=== PATIENT | male | born 1965 | race Hispanic/Latino ===

== ENCOUNTER 2022-08-09 14:44 | Emergency (ER) | payer OTHER ==
[2022-08-09] MEDS ORDERED: HYDROCODONE/APAP 10/325 TAB ONE (16:01)
--- NOTE | 2022-08-09 16:55 | RAD REPORT ---
EXAM DESCRIPTION: RAD - Tib Fib Left - 08/09/2022 4:13 pm CLINICAL HISTORY: Blunt force trauma COMPARISON: None. FINDINGS: Oblique fracture is present in the distal shaft of the fibula. No significant distraction or angulation deformity. The tibia and the remainder the fibula without acute finding. Knee and ankle joints without acute findings. No foreign body or other soft tissue abnormality. IMPRESSION: Distal left fibula fracture without significant distraction or angulation.
--- NOTE | 2022-08-09 16:56 | RAD REPORT ---
EXAM DESCRIPTION: RAD - Foot Left 3 View - 08/09/2022 4:13 pm CLINICAL HISTORY: PAIN COMPARISON: No comparisons FINDINGS: No fracture, dislocation or periosteal reaction. No acute or destructive bony process. No air or foreign body in the soft tissues. Distal fibular fracture is separately reported. IMPRESSION: Negative left foot examination.
--- NOTE | 2022-08-09 17:48 | ER ---
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 Pt c/o left lower leg pain and right elbow pain. Coronavirus screen: At this time, the client does not indicate any symptoms associated with coronavirus-19. Ebola Screen: Patient denies travel to an Ebola-affected area in the 21 days before illness onset. Initial Sepsis Screen: Does the patient meet any 2 criteria? No. Patient's initial sepsis screen is negative. Does the patient have a suspected source of infection? No. Patient's initial sepsis screen is negative. Risk Assessment: Do you want to hurt yourself or someone else? Patient reports no desire to harm self or others. Onset of symptoms was August 09, 2022. 15:21 Method Of Arrival: Wheelchair aa5 15:21 Acuity: CATIA 4 aa5 Historical: - Allergies: 15:22 Iodine IV; aa5 - PMHx: 15:22 Diabetes - NIDDM; Hypertension; aa5 15:23 Sleep apnea; Asthma; aa5 - PSHx: 15:22 None; aa5 - Immunization history:: Adult Immunizations unknown. - Social history:: Smoking status: Patient denies any tobacco usage or history of. Vital Signs: 15:21 BP 127 / 81; Pulse 91; Resp 16 S; Temp 98.2(TE); Pulse Ox 98% on R/A; Weight 86.18 kg aa5 (R); ED Course: 14:45 Patient arrived in ED. am2 14:57 Sahil Turpin PA is PHCP. cp 14:57 Sahil Cruz MD is Attending Physician. cp 15:21 Arm band placed on. aa5 15:22 Triage completed. aa5 16:15 XRAY Tib Fib LEFT In Process Unspecified. EDMS 16:15 XRAY Foot LEFT 3 View In Process Unspecified. EDMS 17:45 Peter Chopra MD is Referral Physician. cp 18:17 Araseli Stephenson, RN is Primary Nurse. iw Administered Medications: 15:51 Drug: HYDROcodone-acetaminophen 10 mg-325 mg 1 tabs Route: PO; bm7 Outcome: 17:47 Discharge ordered by . cp 18:18 Patient left the ED. iw Signatures: Dispatcher [employer] EDAraseli Escamilla, RN RN iw Janene Guerin RN RN aa5 Sahil Turpin, PA PA Sarina Arzate am2 Jovana Reno RN RN bm7 Corrections: (The following items were deleted from the chart) 15:23 15:22 PMHx: Dementia; aa5 aa5 15:23 15:22 Social history: Smoking status: Patient denies any tobacco usage or history of. aa5 aa5
--- NOTE | 2022-08-09 17:48 | EDPHYS ---
Physician Documentation [facility] Name: Raphael Berman Age: 57 yrs Sex: Male : 1965 Arrival Date: 08/09/2022 Time: 14:45 Bed Treatment Private MD: ED Physician Sahil Cruz HPI: 08/09 15:45 This 57 yrs old Male presents to ER via Wheelchair with complaints of Ankle cp Injury, Leg Pain. 15:45 Trauma demographics: County: The injury occurred in [place] Location of Injury: The cp injury occurred outdoors, Date: August 09, 2022. Mechanism of injury: Crush injury: from riding lawnmower, not require extrication, and the patient was not trapped for any length of time. Associated injuries: The patient sustained left foot and left ankle and left lower leg, painful injury. Onset: The symptoms/episode began/occurred just prior to arrival. 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 Lawn cp mower rolled on top of him but he was able to lift it off himself. Patient c/o pain to left lower leg, left ankle and left foot. Small laceration noted to right wrist, right elbow discomfort and mild stiffness of neck. Historical: - Allergies: 15:22 Iodine IV; aa5 - PMHx: 15:22 Diabetes - NIDDM; Hypertension; aa5 15:23 Sleep apnea; Asthma; aa5 - PSHx: 15:22 None; aa5 - Immunization history:: Adult Immunizations unknown. - Social history:: Smoking status: Patient denies any tobacco usage or history of. ROS: 15:50 Constitutional: Negative for body aches, chills, fever, poor PO intake. cp 15:50 Eyes: Negative for injury, pain, redness, and discharge. cp 15:50 Neck: Positive for stiffness, Negative for bony tenderness. 15:50 Cardiovascular: Negative for chest pain, palpitations. 15:50 Respiratory: Negative for cough, shortness of breath, wheezing. 15:50 Abdomen/GI: Negative for abdominal pain, nausea, vomiting, and diarrhea. 15:50 Back: Negative for pain at rest, pain with movement. 15:50 MS/extremity: Positive for pain, of the left foot and left ankle and left lower leg, Negative for paresthesias. 15:50 Skin: Positive for laceration(s), of the volar side of right wrist. 15:50 Neuro: Negative for altered mental status, headache, numbness, weakness. 15:50 All other systems are negative. Exam: 15:50 Constitutional: The patient appears in no acute distress, alert, awake, cp non-diaphoretic, non-toxic, well developed, well nourished, uncomfortable. 15:50 Head/Face: Normocephalic, atraumatic. cp 15:50 Eyes: Periorbital structures: appear normal, Pupils: equal, round, and reactive to light and accomodation, Extraocular movements: intact throughout, Conjunctiva: normal, no exudate, no injection, Sclera: no appreciated abnormality, Lids and lashes: appear normal, bilaterally. 15:50 ENT: External ear(s): are unremarkable, Nose: is normal, Mouth: Lips: moist, Oral mucosa: pink and intact, moist, Posterior pharynx: Airway: no evidence of obstruction, patent. 15:50 Neck: C-spine: vertebral tenderness, is not appreciated, crepitus, is not appreciated, ROM/movement: pain, that is mild, with any movement, limited range of motion, is not appreciated, nuchal rigidity, is not appreciated. 15:50 Chest/axilla: Inspection: normal, Palpation: is normal, no crepitus, no tenderness. 15:50 Cardiovascular: Rate: normal, Rhythm: regular. 15:50 Respiratory: the patient does not display signs of respiratory distress, Respirations: normal, no use of accessory muscles, no retractions, labored breathing, is not present, Breath sounds: are clear throughout, no decreased breath sounds, no stridor, no wheezing. 15:50 Abdomen/GI: Inspection: obese Bowel sounds: active, all quadrants, Palpation: abdomen is soft and non-tender, in all quadrants. 15:50 Back: pain, that is very mild, ROM is normal, vertebral tenderness, is not appreciated. 15:50 Musculoskeletal/extremity: Extremities: noted in the lateral side lower aspect of left lower leg: pain, marked tenderness to palpation, mild swelling, ROM: limited passive range of motion due to pain, in the left ankle, Pulses: noted to be 2+ in the right radial artery and left dorsalis pedis artery, the left foot and left leg Sensation intact. 15:50 Skin: injury, laceration(s), that can be described as clean, no foreign body, without bleeding, crescent shaped noted to volar side of right wrist. 15:50 Neuro: Orientation: to person, place \T\ time. Mentation: is normal, Motor: moves all fours, strength is normal, Sensation: is normal. Vital Signs: 15:21 BP 127 / 81; Pulse 91; Resp 16 S; Temp 98.2(TE); Pulse Ox 98% on R/A; Weight 86.18 kg aa5 (R); Procedures: 18:00 Splinting: Splint applied to left lower leg and left ankle and left foot using cp Orthoglass short leg and stirrup type. applied by myself. tech. Examined by me, post splint application: neurovascular intact, Patient tolerated well. MDM: 15:30 Patient medically screened. cp 16:00 Differential diagnosis: intra-abdominal injury, closed head injury, extremity fracture, cp C spine fracture, penetrating trauma. 17:47 Data reviewed: vital signs, nurses notes, radiologic studies, plain films. cp 17:47 Test interpretation: by ED physician or midlevel provider: plain radiologic studies. cp Counseling: I had a detailed discussion with the patient and/or guardian regarding: the historical points, exam findings, and any diagnostic results supporting the discharge/admit diagnosis, radiology results, the need for outpatient follow up, for definitive care, a orthopedic surgeon, to return to the emergency department if symptoms worsen or persist or if there are any questions or concerns that arise at home. Response to treatment: the patient's symptoms have markedly improved after treatment. ED course: VSS. Pain improved with meds. Patient declined xrays of right elbow, suturing of right wrist laceration and/or ct of neck at this time. Will discharge to home for continued monitoring with instructions to f/u with ortho. 08/09 15:32 Order name: XRAY Tib Fib LEFT; Complete Time: 17:44 cp 08/09 17:45 Interpretation: Report reviewed. 08/09 15:32 Order name: XRAY Foot LEFT 3 View; Complete Time: 17:44 cp 08/09 17:44 Interpretation: Reviewed report. 08/09 16:19 Order name: Splint - Posterior Leg: short leg with stirrup cp 08/09 16:19 Order name: Crutches cp 08/09 16:19 Order name: Wound dressing cp Administered Medications: 15:51 Drug: HYDROcodone-acetaminophen 10 mg-325 mg 1 tabs Route: PO; bm7 Disposition Summary: 08/09/22 17:47 Discharge Ordered Location: Home cp Problem: new cp Symptoms: have improved cp Condition: Stable cp Diagnosis - Laceration without foreign body of right wrist cp - Displaced oblique fracture of shaft of left fibula, initial encounter for closed cp fracture Followup: cp - With: Peter Chopra MD - When: 1 week - Reason: left distal fibula fracture Discharge Instructions: - Discharge Summary Sheet cp - Nonsutured Laceration Care cp - Fibular Fracture Rehab-[facility] cp Forms: - Medication Reconciliation Form cp - Thank You Letter cp - Antibiotic Education cp - Prescription Opioid Use cp Prescriptions: - Ibuprofen 800 mg Oral Tablet - take 1 tablet by ORAL route every 8 hours As needed take with food; 30 tablet; cp Refills: 0, Product Selection Permitted - Tylenol-Codeine #3 300 mg-30 mg Oral - take 2 tablet by ORAL route every 8-10 hours; 20 tablet; Refills: 0, Product cp Selection Permitted Signatures: Dispatcher [employer] EDJanene Khanna RN RN aa5 Sahil Turpin PA PA cp Jovana Reno, RN RN bm7 Corrections: (The following items were deleted from the chart) 15:23 15:22 PMHx: Dementia; aa5 aa5 15:23 15:22 Social history: Smoking status: Patient denies any tobacco usage or history of. aa5 aa5 16:14 15:33 Ankle Left 3 View+RAD.RAD.BRZ ordered. EDMS EDMS
[2022-08-11 07:06] VITALS: BP 127/81; TEMP 98.2; O2SAT 98
== END 2022-08-09 18:18 | disposition home or self-care (01) ==
LOC: ER 14:44
PROC: 2W3RX1Z Immobilization of Left Lower Leg using Splint (ICD-10-PCS; principal; 2022-08-09)
DX: S82.432A Displaced oblique fracture of shaft of left fibula, initial encounter for closed fracture (principal); S61.511A Laceration without foreign body of right wrist, initial encounter; Z91.048 Other nonmedicinal substance allergy status
CPT/HCPCS: 99283